=== PATIENT | female | born 1990 | race Caucasian/White ===

== ENCOUNTER 2020-07-02 06:55 | Emergency (ER) | payer OTHER ==
[~2020-07-02] VITALS: Ht 160 cm; Wt 97.2 kg
[2020-07-02 07:02] VITALS: BP 112/67; Ht 160 cm; Wt 97.2 kg
[2020-07-02] MEDS ORDERED: HYDROXYZINE HYD25 MG PO (07:31)
[2020-07-02] MEDS ORDERED: ELIMITE5% TOP (07:31)
== END 2020-07-02 07:57 | disposition home or self-care (01) ==
LOC: ED 06:55
DX: B86 Scabies (principal); Z90.49 Acquired absence of other specified parts of digestive tract